=== PATIENT | female | born 1990 | race Hispanic/Latino ===

== ENCOUNTER 2020-10-21 10:39 | Inpatient (IN) | payer MEDICAID ==
[~2020-10-21] VITALS: Ht 162.6 cm; Wt 119.7 kg
[2020-10-21 11:59] LABS: BASOPHILS % (AUTO) 0.6 % (0.0-5.0); EOSINOPHILS % (AUTO) 1.6 % (0.0-8.0); HEMATOCRIT 38.1 % (36-48); LYMPHOCYTES % (AUTO) 16.4 % (21.0-51.0); MEAN CORPUSCULAR HEMOGLOBIN 27.1 pg (27.0-33.0); MEAN CORPUSCULAR HGB CONC 33.9 g/dL (32.0-36.0); MONOCYTES % (AUTO) 4.6 % (3.0-13.0); NEUTROPHILS % (AUTO) 75.7 % (40.0-77.0); PLATELET COUNT (AUTO) 286 K/uL (130-400); RED BLOOD CELL COUNT(AUTO) 4.76 MIL/uL (4.00-5.50); RED CELL DISTRIBUTION WIDTH 14.4 % (11.0-15.5); WHITE BLOOD COUNT (AUTO) 12.4 K/uL (4.8-10.8)
[2020-10-21 12:02] LABS: APPEARANCE,URINE Clear (CLEAR); BILIRUBIN,URINE Negative (NEGATIVE); COLOR,URINE Yellow (YELLOW); GLUCOSE, URINE (UA) Negative (NEGATIVE); KETONES,URINE Negative (NEGATIVE); LEUKOCYTE ESTERASE ,URINE Negative (NEGATIVE); NITRATE,URINE Negative (NEGATIVE); OCCULT BLOOD,URINE Trace (NEGATIVE); PROTEIN,URINE Trace mg/dL (NEGATIVE); UROBILINOGEN,URINE 0.2 mg/dL (0.2-1.0)
[2020-10-21 12:09] LABS: CREATININE 0.5 mg/dL (0.5-1.5); POTASSIUM 3.7 mmol/L (3.5-5.1)
[2020-10-21 12:11] LABS: INR 1.02 (0.85-1.15); PROTHROMBIN TIME 10.9 SEC (9.6-11.6)
[2020-10-21 12:12] LABS: PARTIAL THROMBOPLASTIN TIME 27.1 SEC (26.3-35.5)
[2020-10-21 12:14] LABS: ALBUMIN 2.8 g/dL (3.5-5.0); BILIRUBIN,TOTAL 0.4 mg/dL (0.2-1.0); TOTAL PROTEIN, SERUM 6.9 g/dL (6.0-8.3); URIC ACID 3.2 mg/dL (2.6-7.2)
[2020-10-21 12:22] LABS: BACTERIA,URINE Rare /HPF (None Seen); RBC,URINE 0-1 /HPF (0-1); SQUAMOUS EPITHELIAL CELL,UR Rare /HPF (0-2); WBC,URINE 0-1 /HPF (0-1)
[2020-10-21] MEDS: CELESTONE SOLUSPAN 6 MG/ML 5ML VIAL IM SCH (12:23)
[2020-10-21] MEDS: LACTATED RINGERS 1000ML 1,000 ML IV PRN (12:23)
[2020-10-21] MEDS ORDERED: LABETALOL HCL 100 MG TABLET PO SCH (21:00)
[2020-10-22] MEDS ORDERED: HYDRALAZINE 20MG/ML VIAL IV SCH ×2 (03:30→08:00)
[2020-10-22] MEDS ORDERED: HYDRALAZINE 20MG/ML VIAL ONE ×2 (03:32→03:33)
[2020-10-22 06:12] LABS: HEPATITIS Bs ANTIGEN SCREEN P Negative (Negative)
[2020-10-22] MEDS: LABETALOL HCL 100 MG TABLET PO SCH ×2 (07:51→21:16)
[2020-10-22] MEDS: LACTATED RINGERS 1000ML 1,000 ML IV PRN (07:53)
[2020-10-22] MEDS ORDERED: MAGNESIUM SULFATE 40GM/1000ML 1,000 ML IV ONE (08:08)
[2020-10-22] MEDS ORDERED: MAGNESIUM 4GM PREMIX 100ML 100 ML IV ONE (08:08)
[2020-10-22] MEDS ORDERED: MAGNESIUM SULFATE 40GM/1000ML 1,000 ML IV PRN (08:15)
[2020-10-22] MEDS ORDERED: LACTATED RINGERS 1000ML 1,000 ML IV SCH (08:15)
[2020-10-22] MEDS ORDERED: MAGNESIUM 4GM PREMIX 100ML 100 ML IV PRN (08:15)
[2020-10-22] MEDS ORDERED: ACETAMINOPHEN 500 MG TABLET ONE (11:15)
[2020-10-22] MEDS ORDERED: ACETAMINOPHEN 500 MG TABLET PO SCH (11:15)
[2020-10-22 12:04] LABS: COLLECTION PERIOD,URINE 24 HR
[2020-10-22 12:05] LABS: TOTAL VOLUME 24HRS,URINE 3800 mL; TPROTEIN TIMED,URINE 29 mg/dL; TPROTEIN U,24HR CALC 1102 mg/24HR (0-165)
[2020-10-22 12:08] LABS: CREATININE,SERUM FOR CRCL 0.5 mg/dL (0.6-1.3)
[2020-10-22] MEDS: CELESTONE SOLUSPAN 6 MG/ML 5ML VIAL IM SCH (12:53)
[2020-10-23 06:00] LABS: BASOPHILS % (AUTO) 0.3 % (0.0-5.0); HEMATOCRIT 35.8 % (36-48); MEAN CORPUSCULAR HEMOGLOBIN 27.3 pg (27.0-33.0); MEAN CORPUSCULAR HGB CONC 33.5 g/dL (32.0-36.0); MEAN CORPUSCULAR VOLUME 81.4 fL (79-99); MONOCYTES % (AUTO) 3.4 % (3.0-13.0); NEUTROPHILS % (AUTO) 84.2 % (40.0-77.0); PLATELET COUNT (AUTO) 298 K/uL (130-400); RED CELL DISTRIBUTION WIDTH 14.6 % (11.0-15.5); WHITE BLOOD COUNT (AUTO) 15.4 K/uL (4.8-10.8)
[2020-10-23 06:08] LABS: INR 0.98 (0.85-1.15); PROTHROMBIN TIME 10.5 SEC (9.6-11.6)
[2020-10-23 06:10] LABS: PARTIAL THROMBOPLASTIN TIME 24.4 SEC (26.3-35.5)
[2020-10-23 06:17] LABS: ALBUMIN 2.7 g/dL (3.5-5.0); BILIRUBIN,TOTAL 0.5 mg/dL (0.2-1.0); CREATININE 0.5 mg/dL (0.5-1.5); POTASSIUM 3.7 mmol/L (3.5-5.1); TOTAL PROTEIN, SERUM 6.7 g/dL (6.0-8.3); URIC ACID 5.4 mg/dL (2.6-7.2)
[2020-10-23] MEDS: LABETALOL HCL 100 MG TABLET PO SCH (09:24)
== END 2020-10-23 12:00 | disposition short-term general hospital (02) | DRG 566 ==
LOC: LDH 11:00 → OBSVTOIN 11:00
PROVIDERS: ADMIT Obstetrics & Gynecology; ATTEND Obstetrics & Gynecology
DX: O13.3 Gestational [pregnancy-induced] hypertension without significant proteinuria, third trimester (principal); Z3A.31 31 weeks gestation of pregnancy
CPT/HCPCS: 36415; 76805; 80053; 81001; 82575; 84156; 84550; 85025; 85384; 85610; 85730; 86592; 86850; 86900; 86901; 87340; A4314; A4351; A4606; G0378; J0360; J0702; J3475; J7120

== ENCOUNTER → 2021-10-09 | Outpatient (CLI) | payer MEDICAID | END | disposition home or self-care (01) | LOC: OIH 08:13 | PROVIDERS: ATTEND Internal Medicine Cardiovascular Disease | DX: I35.2 Nonrheumatic aortic (valve) stenosis with insufficiency (principal); I10 Essential (primary) hypertension | CPT/HCPCS: 93306; 93356; 93975 ==